=== PATIENT | male | born 1980 | race Caucasian/White ===

== ENCOUNTER 2018-12-14 23:29 | Emergency (ER) | payer OTHER ==
[~2018-12-14] VITALS: Ht 188 cm; Wt 102.1 kg
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
[2018-12-15] MEDS ORDERED: LIDOCAINE /MPF 1% VIAL 5 ML VIAL ONE (00:01)
[2018-12-15] MEDS ORDERED: LIDOCAINE HCL/MPF 1% 30 ML VIAL IJ ONE (00:26)
[2018-12-15] MEDS ORDERED: TDAP [DIPH/PERTUSSIS/TET] 0.5 ML VIAL IM ONE ×2 (00:27→00:30)
[2018-12-15] MEDS ORDERED: BACI/NEOM/POLY B OINT PKT 1 UDPKT PACKET TP ONE (00:30)
[2018-12-15] MEDS ORDERED: LIDOCAINE HCL/PF 1% 30 ML VIAL TP ONE (00:30)
--- NOTE | 2018-12-15 00:52 | NUR ---
AT BEDSIDE FOR SUTURE
--- NOTE | 2018-12-15 01:40 | NUR ---
WOUND CLEANSED WITH NS. COVER NON ADHERENT DRESSING AND WRAPPED WITH KERLIX. INTRUCTION PROVIDED FOR WOUND CARE
--- NOTE | 2018-12-15 01:54 | NUR ---
Patient discharged to home in stable condition. Written and verbal after care instructions given. Patient verbalizes understanding of instruction.Pt ambulatory with a steady gait
[2018-12-15 01:56] VITALS: BP 158/88
== END 2018-12-15 01:57 | disposition home or self-care (01) ==
LOC: ER 23:34
DX: S61.214A Laceration without foreign body of right ring finger without damage to nail, initial encounter (principal); S61.210A Laceration without foreign body of right index finger without damage to nail, initial encounter; Z60.2 Problems related to living alone; W26.0XXA Contact with knife, initial encounter; Y93.89 Activity, other specified; Y92.89 Other specified places as the place of occurrence of the external cause; Y99.8 Other external cause status
CPT/HCPCS: 12002; 90471; 90715; 99284; A6402 ×2; J3490 ×3